=== PATIENT | male | born 2000 | race Hispanic/Latino ===

== ENCOUNTER 2019-01-04 07:23 | Emergency (ER) | payer SELFPAY ==
[2019-01-04] MEDS ORDERED: Adacel (T-DAP) 0.5 ML SYRINGE ONE (08:21)
[2019-01-04] MEDS ORDERED: Bacitracin 1 PK ONE (08:21)
[2019-01-04] MEDS ORDERED: Lidocaine 4% Cream 5 GM TUBE w/ Tegaderm ONE (08:21)
== END 2019-01-04 09:13 | disposition home or self-care (01) ==
LOC: ERS 07:23
DX: S50.811A Abrasion of right forearm, initial encounter (principal); Z23 Encounter for immunization; W26.8XXA Contact with other sharp object(s), not elsewhere classified, initial encounter; Y93.66 Activity, soccer
CPT/HCPCS: 90471; 90715

== ENCOUNTER 2019-10-26 15:38 | Emergency (ER) | payer SELFPAY ==
[2019-10-26 16:19] LABS: Bilirubin Negative (Negative); Blood, Urine Negative (Negative); Clarity Clear (Clear); Glucose, Urine (Dipstick) Normal (Negative); Leukocyte Negative Leu/uL (Negative); Nitrite Negative (Negative); Protein, Urine (Dipstick) Negative (Neg-Trace); Urobilinogen Normal mg/dL (Less than 2)
--- NOTE | 2019-10-26 16:40 | ULT ---
ULTRASOUND SCROTUM AND TESTICLES DOPPLER DUPLEX: DATE: 10/26/2019 HISTORY: 19-year-old male with testicular pain TECHNIQUE: Grayscale evaluation of intrascrotal contents. Color flow Doppler and spectral waveform analysis of t he testicles. FINDINGS: The bilateral testicles are normal in size, and have homogeneously normal echogenicity, and have symm etrical blood flow. The epididymal heads are bilaterally normal in size. There are a few tiny cysts in the epididymal heads bilaterally, ranging in size from 3-5 mm. There is no intratesticular mass, h ydrocele, or varicocele. IMPRESSION: 1. A few tiny bilateral epididymal head cysts. 2. Otherwise negative.
[2019-10-28 18:54] LABS: Chlam.trachomatis by PCR,Urine Not Detected (NotDetected)
== END 2019-10-26 18:05 | disposition home or self-care (01) ==
LOC: ERS 15:38
DX: N50.3 Cyst of epididymis (principal)
CPT/HCPCS: 76870; 81003; 87491; 87591; 93976

== ENCOUNTER 2019-12-10 06:10 | Outpatient (CLI) | payer BC, OTHER ==
[2019-12-10 10:11] LABS: #Basophils 0.1 thou/uL (0.0-0.2); #Eosinphils 0.1 thou/uL (0.0-0.7); #Lymphocytes 1.7 thou/uL (1.20-3.40); #Monocytes 0.4 thou/uL (0.11-0.59); #Neutrophils 4.8 thou/uL (1.40-6.50); %Basophils 0.7 % (0.0-1.0); %Eosinophils 1.3 % (0.0-10.0); %Lymphocytes 24.7 % (28.0-48.0); %Neutrophils 68.4 % (31.0-61.0); Hemoglobin 15.9 g/dL (14.0-18.0); Mean Corpuscular HGB CONC 33.4 g/dL (32.0-36.0); Mean Corpuscular Hemoglobin 30.4 pg (25.0-35.0); Mean Corpuscular Volume 90.9 fL (78.0-98.0); Mean Platelet Volume 7.8 fL (7.4-10.4); Platelet Count 299 thou/uL (130-400); RBC Distribution Width 10.8 % (11.5-14.5); Red Blood Cell (RBC) Count 5.24 mill/uL (4.00-5.20)
[2019-12-11 11:32] LABS: SARS-CoV-2 MS2 Positive; SARS-CoV-2 N Gene Negative; SARS-CoV-2 S Gene Negative; SARS-CoV-2 orf1ab Negative
== END 2019-12-10 06:11 | disposition home or self-care (01) ==
LOC: LABBT 06:10
PROVIDERS: ATTEND Surgery
DX: Z01.812 Encounter for preprocedural laboratory examination (principal); Z11.59 Encounter for screening for other viral diseases; K40.90 Unilateral inguinal hernia, without obstruction or gangrene, not specified as recurrent
CPT/HCPCS: 85025; 87635; U0003

== ENCOUNTER 2019-12-15 06:03 | Day surgery (SDC) | payer BC ==
[2019-12-15] MEDS ORDERED: Bupivacaine 0.25% HCL 30 ML VIAL ONE (06:24)
[2019-12-15] MEDS ORDERED: Lidocaine 1% w/Epinephrine 1:100K 20 ML VIAL ONE (06:24)
[2019-12-15] MEDS ORDERED: Fentanyl 250 MCG/5 ML VIAL ONE (06:56)
[2019-12-15] MEDS ORDERED: Midazolam HCl 2 mg/2 ml Vial ONE (08:01)
[2019-12-15] MEDS ORDERED: Fentanyl 100 MCG/2 ML VIAL ONE (10:04)
--- NOTE | 2019-12-15 10:18 | OP ---
DATE OF PROCEDURE: 12/15/2019 PREOPERATIVE DIAGNOSIS: Bilateral inguinal hernia. POSTOPERATIVE DIAGNOSIS: Bilateral inguinal hernia. PROCEDURE PERFORMED: Da Anatoliy laparoscopic bilateral inguinal hernia repair with mesh, Bard 3DMax large. ANESTHESIA: General. ESTIMATED BLOOD LOSS: Minimal. COMPLICATIONS: None. SPECIMENS: None. FINDINGS: Bilateral indirect inguinal hernias. DESCRIPTION OF PROCEDURE: The patient was taken to the operating room and laid supine on the operating room table. After general anesthetic was obtained, a Caceres was placed. The abdomen was shaved, prepped, and draped in a sterile fashion. A curved incision was made above the umbilicus. Cautery was used to dissect down to and score the fascia. Abdominal cavity was entered bluntly using a Barbara clamp. A holding stitch of PDS was placed on each side of the fascia. An 11 mm balloon trocar was placed. High-flow pneumoperitoneum was obtained. Left and right abdominal 8-mm robotic trocars were placed. All ports were docked to the robot. The peritoneum was taken down in the bilateral groins bilaterally. The preperitoneal space was bluntly dissected, the pubic tubercle medially, anterior superior iliac crest laterally, and shelving edge of the ligament fully exposed. Bilateral indirect inguinal hernias are dissected back off the hernia sac high up on to the peritoneum. The bilateral 3DMax large mesh was brought in, the M labeled medial aspects were placed over the pubic tubercle medially. The mesh was laid out to cover the indirect, direct, and femoral areas. The mesh was sewn via 2-0 Vicryl to the pubic tubercle medially to the posterior fascia laterally. The peritoneum was reapproximated using 3-0 STRATAFIX. All needles were removed from the abdomen and accounted for. All port sites were infiltrated using local anesthetic. All ports were removed under camera visualization without bleeding. Pneumoperitoneum was let down. PDS was used to close the fascia above the umbilicus. All incisions were irrigated and closed using 4-0 Monocryl and Dermabond. The patient was sent to Recovery in stable condition. All instrument counts, needle counts, and lap counts were correct. Job ID: [id number]
[2019-12-15] MEDS ORDERED: PROPOFOL 200 MG/20 ML VIAL ONE (11:24)
[2019-12-15] MEDS ORDERED: Dexamethasone 20 MG/5 ML VIAL ONE (11:24)
[2019-12-15] MEDS ORDERED: EPHEDRINE 25 MG/5 ML SYRINGE ONE (11:24)
[2019-12-15] MEDS ORDERED: Glycopyrrolate 0.2 MG/ML 5 ML SYRINGE ONE (11:24)
[2019-12-15] MEDS ORDERED: Ketorolac Tromethamine 30 MG/ML VIAL ONE (11:24)
[2019-12-15] MEDS ORDERED: Lidocaine 1% PF 5 ML VIAL ONE (11:24)
[2019-12-15] MEDS ORDERED: Ondansetron PF 4 MG/2 ML Vial ONE (11:24)
[2019-12-15] MEDS ORDERED: Rocuronium Bromide 10 MG/ML (10ML VIAL) ONE (11:24)
== END 2019-12-15 14:34 | disposition home or self-care (01) ==
LOC: SDC 06:03
PROVIDERS: ATTEND Surgery
PROC: 0YUA4JZ Supplement Bilateral Inguinal Region with Synthetic Substitute, Percutaneous Endoscopic Approach (ICD-10-PCS; principal; 2019-12-15)
DX: K40.20 Bilateral inguinal hernia, without obstruction or gangrene, not specified as recurrent (principal)
CPT/HCPCS: 51798; C1781; J0690; J1100; J1885; J2001; J2250; J2405; J2704; J3010; S0020